=== PATIENT | male | born 1980 | race American Indian/Alaskan Native ===

== ENCOUNTER 2018-10-21 23:18 | Emergency (ER) | payer SELFPAY ==
--- NOTE | 2018-10-22 00:16 | XRay Report ---
PROCEDURE: XR CHEST ROUTINE 2V TECHNIQUE: PA and lateral chest radiographs were obtained. HISTORY: dyspnea COMPARISONS: None. FINDINGS: Heart: Normal. Mediastinum/Vessels: Normal. Lungs/Pleural space: Normal. Bony thorax: No acute osseous abnormality. IMPRESSION: There is no evidence of an acute cardiopulmonary process. This document is electronically signed by Melinda Llanes DO., Oct 22 2018 12:14:48 AM ET
--- NOTE | 2018-10-22 00:16 | XRay Report ---
PROCEDURE: XR NECK SOFT TISSUE TECHNIQUE: Soft tissue neck radiographs, 2 views, including AP and lateral. HISTORY: foreign body COMPARISONS: None . FINDINGS: Bone mineralization: Normal . Alignment: Normal . Soft tissues: Epiglottis and hypopharyngeal soft tissues normal . Foreign bodies: None . IMPRESSION: Normal Examination . This document is electronically signed by Melinda Llanes DO., Oct 22 2018 12:14:07 AM ET
[2018-10-22] MEDS ORDERED: ATIVAN IV ONE (00:29)
--- NOTE | 2018-10-22 00:29 | Emergency Department Report ---
ED General Adult HPI - General Chief complaint: Dyspnea/Respdistress Stated complaint: SOB/POTATOE STUCK IN THROAT Time Seen by Provider: 10/22/18 00:01 Source: patient, family Mode of arrival: Ambulatory Limitations: No Limitations - History of Present Illness Initial comments: Patient is 38 years old male with no significant past medical history. Patient presented to the ER stating that he was eating potato salad and he took a big junk and he felt it stuck in his thoughts and since then he's been burping. No drooling all excessive salivation. - Related Data Allergies Allergy/AdvReac Type Severity Reaction Status Date / Time Iodine and Iodide Containing Allergy Unknown Verified 10/21/18 23:22 Produc ED Review of Systems ROS: Stated complaint: SOB/POTATOE STUCK IN THROAT Other details as noted in HPI Comment: All other systems reviewed and negative ENT: throat pain Respiratory: shortness of breath. denies: cough Gastrointestinal: denies: abdominal pain, nausea ED Past Medical Hx - Past Medical History Previous Medical History?: Yes Additional medical history: excema - Surgical History Past Surgical History?: No - Social History Smoking Status: Never Smoker Substance Use Type: None ED Physical Exam - General Limitations: No Limitations General appearance: alert, in no apparent distress - Head Head exam: Present: atraumatic, normocephalic, normal inspection - Eye Eye exam: Present: normal appearance, PERRL - ENT ENT exam: Present: normal exam, normal orophraynx, mucous membranes moist - Neck Neck exam: Present: normal inspection, full ROM. Absent: tenderness, meningismus, lymphadenopathy, thyromegaly - Respiratory Respiratory exam: Present: normal lung sounds bilaterally - Cardiovascular Cardiovascular Exam: Present: regular rate, normal rhythm, normal heart sounds - GI/Abdominal GI/Abdominal exam: Present: soft. Absent: distended, tenderness, guarding - Extremities Exam Extremities exam: Present: normal inspection, full ROM, normal capillary refill - Back Exam Back exam: Present: normal inspection, full ROM. Absent: CVA tenderness (R), CVA tenderness (L) - Neurological Exam Neurological exam: Present: alert, oriented X3, CN II-XII intact, normal gait, reflexes normal - Skin Skin exam: Present: warm, intact, normal color ED Course Vital Signs 10/21/18 10/22/18 10/22/18 23:23 00:00 00:10 Temperature 98 F 98.1 F Pulse Rate 117 H 102 H Respiratory 16 20 Rate Blood Pressure 143/76 126/59 Blood Pressure 124/74 [Left] O2 Sat by Pulse 99 97 98 Oximetry 10/22/18 10/22/18 00:48 01:00 Temperature Pulse Rate 104 H Respiratory Rate Blood Pressure 126/72 126/59 Blood Pressure [Left] O2 Sat by Pulse 94 Oximetry ED Medical Decision Making - Medical Decision Making Patient is 38 years old male with no significant past medical history. Patient presented to the ER stating that he was eating potato salad and he took a big junk and he felt it stuck in his thoughts and since then he's been burping. No drooling all excessive salivation. Patient received Ativan, glucagon and nitroglycerin. Patient now is able to swallow without difficulty and stated that he is feeling much better. I advised him to follow up with his primary care physician in the next 2-3 days and to return to the ER if symptoms are not improved. Critical care attestation.: If time is entered above; I have spent that time in minutes in the direct care of this critically ill patient, excluding procedure time. ED Disposition Clinical Impression: Foreign body in esophagus Disposition: DC-01 TO HOME OR SELFCARE Is pt being admited?: No Condition: Stable Instructions: Foreign Body in Pharynx (ED) Referrals: MILAD SMITH MD [Primary Care Provider] - 3-5 Days
[2018-10-22] MEDS ORDERED: NITROSTAT SL ONE (00:30)
[2018-10-22] MEDS ORDERED: GLUCAGEN IV ONE (00:30)
[2018-10-22] MEDS ORDERED: NACL 0.9% 1000 ML 1,000 ML IV ONE (00:30)
[2018-10-22 03:53] VITALS: BP 99/62
== END 2018-10-22 03:54 | disposition home or self-care (01) ==
LOC: ED 23:18
DX: M79.5 Residual foreign body in soft tissue (principal); Z91.041 Radiographic dye allergy status
CPT/HCPCS: 70360; 71046; 96374; 96375; 99283; J1610; J2060; J7030